=== PATIENT | male | born 1960 | race African-American/Black ===

== ENCOUNTER 2016-09-30 07:36 | Emergency (ER) | payer SELFPAY ==
[~2016-09-30] VITALS: Wt 100.0 kg
[2016-09-30] MEDS ORDERED: ONDANSETRON (ODT) 4 MG TAB ODT STA (07:55)
[2016-09-30] MEDS ORDERED: HYDROCODONE/APAP (10/325) TAB PO ONE (08:00)
--- NOTE | 2016-09-30 08:23 | RADRPT ---
PROCEDURE: XR Chest. CLINICAL INDICATION: chest pain TECHNIQUE: Single frontal view of the chest was obtained COMPARISON: None FINDINGS: The heart and mediastinum are within normal limits. The lungs are clear. There is no pleural effusion or pneumothorax. RPTAT: AA IMPRESSION: No acute disease. .Sergio Barcenas MD, Date Time Electronically viewed and signed by .Sergio Barcenas MD, on 09/30/2016 08:23 .S/
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
[2016-09-30] MEDS ORDERED: IBUP-1542 PO (09:41)
[2016-09-30] MEDS ORDERED: HYDR-902 PO (09:41)
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
== END 2016-09-30 09:49 | disposition home or self-care (01) ==
LOC: FTE 07:36
DX: S06.0X0A Concussion without loss of consciousness, initial encounter (principal); R07.9 Chest pain, unspecified; V43.52XA Car driver injured in collision with other type car in traffic accident, initial encounter
CPT/HCPCS: 70450; 71010; 72125